=== PATIENT | female | born 1970 | race Caucasian/White ===

== ENCOUNTER 2020-10-11 12:46 | Day surgery (SDC) | payer SELFPAY ==
[~2020-10-11] VITALS: Ht 154.9 cm; Wt 69.5 kg
[2020-10-11 13:39] LABS: BILIRUBIN,URINE NEGATIVE (NEGATIVE); CLARITY,URINE CLEAR; COLOR,URINE YELLOW; GLUCOSE, URINE (UA) 2+ (NEGATIVE); KETONES,URINE 3+ (NEGATIVE); LEUKOCYTE ESTERASE ,URINE NEGATIVE (NEGATIVE); NITRITE,URINE NEGATIVE (NEGATIVE); PROTEIN,URINE NEGATIVE (NEGATIVE)
[2020-10-11] MEDS ORDERED: NS IV 1000 ML 1,000 ML IV SCH ×2 (13:45→14:15)
[2020-10-11] MEDS ORDERED: IOHEXOL 350 MG/ML 100 ML (OMNIPAQUE 350) VIAL IV ONE (13:45)
[2020-10-11] MEDS ORDERED: CATHETER FLUSH 10 ML SYR IV PRN (13:45)
[2020-10-11] MEDS ORDERED: NS 100 ML (IVPB) BAG IV ONE (13:45)
[2020-10-11] MEDS ORDERED: HOLD METFORMIN - RECEIVED CONTRAST 20 ML VIAL IV SCH (13:45)
[2020-10-11 13:46] LABS: BASOPHILS % (AUTO) 1 % (0-10); EOSINOPHILS # (AUTO) 0.1 10^3/uL (0.0-0.3); EOSINOPHILS % (AUTO) 1 % (0-10); HEMATOCRIT 39 % (35-52); HEMOGLOBIN 12.7 g/dL (11.5-16.0); LYMPHOCYTES # (AUTO) 1.8 10^3/uL (1.0-4.0); LYMPHOCYTES % (AUTO) 29 % (12-44); MEAN CORPUSCULAR HEMOGLOBIN 26 pg (25-34); MEAN CORPUSCULAR HGB CONC 33 g/dL (32-36); MEAN CORPUSCULAR VOLUME 81 fL (80-99); MEAN PLATELET VOLUME 10.4 fL (9.0-12.2); MONOCYTES # (AUTO) 0.4 10^3/uL (0.0-1.0); MONOCYTES % (AUTO) 7 % (0-12); NEUTROPHILS % (AUTO) 63 % (42-75); PLATELET COUNT 378 10^3/uL (130-400); WHITE BLOOD COUNT 6.3 10^3/uL (4.3-11.0)
--- NOTE | 2020-10-11 13:47 | ED General ---
General Chief Complaint: Glucose Problems Stated Complaint: HIGH BLOOD SUGAR Source of Information: Patient Exam Limitations: No Limitations History of Present Illness Date Seen by Provider: Oct 11, 2020 Time Seen by Provider: 13:44 Initial Comments To ER with reports of hyperglycemia and left lower quadrant abdominal pain. She presented to [facility] this morning for the symptoms. She was found to have 2+ ketones and glucose in her urine. Her hemoglobin A1c was 14. She is not known to be diabetic. Her left-sided abdominal pain has been present since she had Covid in February. She denies any nausea vomiting or bowel changes. She denies any dysuria. Timing/Duration: Other Severity: Moderate Associated Systoms: Denies Symptoms Allergies and Home Medications Allergies Coded Allergies: No Known Drug Allergies (Unverified , 10/11/20) Home Medications Metformin HCl 500 Mg Tablet, 500 MG PO BID Prescribed by: ZION PATINO on 10/11/201652 Naproxen 500 Mg Tablet, 500 MG PO BID PRN for PAIN-MODERATE (5-7) Prescribed by: ZION PATINO on 10/11/201652 Patient Home Medication List Home Medication List Reviewed: Yes Review of Systems Review of Systems Constitutional: see HPI EENTM: see HPI Respiratory: no symptoms reported Cardiovascular: no symptoms reported Gastrointestinal: abdominal pain Genitourinary: no symptoms reported Musculoskeletal: no symptoms reported Skin: no symptoms reported Psychiatric/Neurological: No Symptoms Reported Hematologic/Lymphatic: No Symptoms Reported Immunological/Allergic: no symptoms reported Physical Exam Vital Signs Vital Signs - First Documented 10/11/20 12:55 Temp 36.4 Pulse 83 Resp 18 B/P (MAP) 156/77 (103) Pulse Ox 100 O2 Delivery Room Air Capillary Refill : Height, Weight, BMI Height: '" Weight: lbs. oz. kg; BMI Method: General Appearance: No Apparent Distress, WD/WN Eyes: Bilateral Eye Normal Inspection, Bilateral Eye PERRL, Bilateral Eye EOMI Neck: Full Range of Motion, Normal Inspection Respiratory: Normal Breath Sounds, No Accessory Muscle Use, No Respiratory Distress Cardiovascular: Regular Rate, Rhythm, Normal Peripheral Pulses Gastrointestinal: Normal Bowel Sounds, Non Tender, Soft Extremity: Normal Capillary Refill, Normal Inspection Neurologic/Psychiatric: Alert, Oriented x3 Skin: Normal Color, Warm/Dry Progress/Results/Core Measures Suspected Sepsis SIRS Temperature: Pulse: Respiratory Rate: Laboratory Tests 10/11/20 13:38: White Blood Count 6.3 Blood Pressure / Mean: Laboratory Tests 10/11/20 13:38: Creatinine 0.62, Platelet Count 378, Total Bilirubin 0.6 Results/Orders Lab Results Laboratory Tests Test 10/11/20 13:32 10/11/20 13:38 Range/Units Urine Color YELLOW Urine Clarity CLEAR Urine pH 6.0 5-9 Urine Specific [place] 1.025 H 1.016-1.022 Urine Protein NEGATIVE NEGATIVE Urine Glucose (UA) 2+ H NEGATIVE Urine Ketones 3+ H NEGATIVE Urine Nitrite NEGATIVE NEGATIVE Urine Bilirubin NEGATIVE NEGATIVE Urine Urobilinogen 0.2 < = 1.0 MG/DL Urine Leukocyte Esterase NEGATIVE NEGATIVE Urine RBC (Auto) NEGATIVE NEGATIVE Urine RBC NONE /HPF Urine WBC 2-5 /HPF Urine Squamous Epithelial Cells 10-25 H /HPF Urine Crystals NONE /LPF Urine Bacteria TRACE /HPF Urine Casts NONE /LPF Urine Mucus NEGATIVE /LPF Urine Culture Indicated NO White Blood Count 6.3 4.3-11.0 10^3/uL Red Blood Count 4.86 3.80-5.11 10^6/uL Hemoglobin 12.7 11.5-16.0 g/dL Hematocrit 39 35-52 % Mean Corpuscular Volume 81 80-99 fL Mean Corpuscular Hemoglobin 26 25-34 pg Mean Corpuscular Hemoglobin Concent 33 32-36 g/dL Red Cell Distribution Width 13.4 10.0-14.5 % Platelet Count 378 130-400 10^3/uL Mean Platelet Volume 10.4 9.0-12.2 fL Immature Granulocyte % (Auto) 0 % Neutrophils (%) (Auto) 63 42-75 % Lymphocytes (%) (Auto) 29 12-44 % Monocytes (%) (Auto) 7 0-12 % Eosinophils (%) (Auto) 1 0-10 % Basophils (%) (Auto) 1 0-10 % Neutrophils # (Auto) 4.0 1.8-7.8 10^3/uL Lymphocytes # (Auto) 1.8 1.0-4.0 10^3/uL Monocytes # (Auto) 0.4 0.0-1.0 10^3/uL Eosinophils # (Auto) 0.1 0.0-0.3 10^3/uL Basophils # (Auto) 0.0 0.0-0.1 10^3/uL Immature Granulocyte # (Auto) 0.0 0.0-0.1 10^3/uL Sodium Level 138 135-145 MMOL/L Potassium Level 3.7 3.6-5.0 MMOL/L Chloride Level 101 98-107 MMOL/L Carbon Dioxide Level 26 21-32 MMOL/L Anion Gap 11 5-14 MMOL/L Blood Urea Nitrogen 11 7-18 MG/DL Creatinine 0.62 0.60-1.30 MG/DL Estimat Glomerular Filtration Rate > 60 BUN/Creatinine Ratio 18 Glucose Level 216 H 70-105 MG/DL Glucometer 211 H 70-110 MG/DL Calcium Level 8.9 8.5-10.1 MG/DL Corrected Calcium 8.7 8.5-10.1 MG/DL Total Bilirubin 0.6 0.1-1.0 MG/DL Aspartate Amino Transf (AST/SGOT) 16 5-34 U/L Alanine Aminotransferase (ALT/SGPT) 17 0-55 U/L Alkaline Phosphatase 83 40-136 U/L Total Protein 7.2 6.4-8.2 GM/DL Albumin 4.3 3.2-4.5 GM/DL Beta-Hydroxybutyrate (Chem panel) 1.19 H 0.00-0.27 MMOL/L Serum Test, Qualitative NEGATIVE NEGATIVE My Orders Orders - ZION PATINO APRN Cbc With Automated Diff (10/11/20 12:50) Comprehensive Metabolic Panel (10/11/20 12:50) Ua Culture If Indicated (10/11/20 12:50) Beta Hydroxybutyrate (10/11/20 12:50) Ct Abdomen/Pelvis W (10/11/20 13:33) Hcg,Qualitative Serum (10/11/20 13:33) Ns Iv 1000 Ml (Sodium Chloride 0.9%) (10/11/20 13:45) Ed Iv/Invasive Line Start (10/11/20 13:33) Iohexol Injection (Omnipaque 350 Mg/Ml 1 (10/11/20 13:45) Received Contrast (Hold Metformin- Contr (10/11/20 13:45) Sodium Chloride Flush (Catheter Flush Sy (10/11/20 13:45) Ns (Ivpb) (Sodium Chloride 0.9% Ivpb Bag (10/11/20 13:45) Ns Iv 1000 Ml (Sodium Chloride 0.9%) (10/11/20 14:15) Us Non Ob Pelvis Comp/Transvag (10/11/20 15:44) Ketorolac Injection (Toradol Injection) (10/11/20 17:15) Medications Given in ED Current Medications Medications Dose Ordered Sig/Lucila Route Start Time Stop Time Status Last Admin Dose Admin Iohexol 75 ml ONCE ONCE IV 10/11/20 13:45 10/11/20 13:46 DC 10/11/20 15:13 100 ML Ketorolac Tromethamine 15 mg ONCE ONCE IVP 10/11/20 17:15 10/11/20 17:16 DC 10/11/20 17:22 15 MG Sodium Chloride 10 ml NEEDED PRN IV 10/11/20 13:45 10/11/20 15:14 10 ML Sodium Chloride 100 ml ONCE ONCE IV 10/11/20 13:45 10/11/20 13:46 DC 10/11/20 15:13 80 ML Vital Signs/I&O 10/11/20 12:55 Temp 36.4 Pulse 83 Resp 18 B/P (MAP) 156/77 (103) Pulse Ox 100 O2 Delivery Room Air Capillary Refill : Progress Note : Progress Note NAME: EVANS SANDHU [facility] REC#: [id number] PT STATUS: REG ER : 1970 PHYSICIAN: ZION PATINO APRN ADMIT DATE: 10/11/20/ER Draft Date of Exam:10/11/20 US NON OB PELVIS COMP/TRANSVAG PROCEDURE: US Non-ob pelvis comp/trans. TECHNIQUE: Multiple realtime grayscale images were obtained of the pelvis in various projections endovaginally. Transabdominal imaging was also performed. INDICATION: Left adnexal mass seen on CT. COMPARISON: CT from earlier same day. FINDINGS: Uterus is anteverted and measures 13.4 cm in length x 6.9 cm in AP dimension x 10 cm transversely. Endometrial stripe is thickened and heterogeneous in appearance. It measures 18 mm in AP thickness. Subendometrial cystic lesion measures 1.6 x 1.2 x 1.3 cm. Included portions the cervix show a small 8 x 8 x 6 mm cyst. Left ovary is enlarged. It measures 6.4 x 5 x 5.4 cm. Complex hypoechoic area measures 4.3 x 2 x 4.1 cm and may be on the basis of hemorrhagic cyst. Performing agile test lead is unable to demonstrate blood flow to the left ovary. Right ovary measures 2.7 x 2.6 x 3.5 cm and contains a prominent follicle that measures 1.5 x 0.8 x 1.1 cm. No adnexal masses or free fluid are seen. IMPRESSION: 1. Non demonstrable blood flow to the left ovary concerning for torsion. 2. Complex cyst of the left ovary; possibly hemorrhagic. 3. Enlarged thickened heterogeneous appearance of the endometrial stripe. Underlying endometrial mass or polyp cannot be excluded. Additional follow-up is recommended. 4. Thick-walled subendometrial cystic lesion of the uterus. Findings can be seen with adenomyosis. Dictated on workstation # [id number] Dict: 10/11/201710 Trans: 10/11/201721 [id number] Interpreted by: EWELINA ADAMS MD Electronically signed by: Departure Communication (Admissions) She was offered medication for her pain but states that is not that bad and she does not need anything for it. She would like some pain medication for the lateral aspect of the right lower leg which she states has been bothering her for 1 week and she believes it is related to a tendon. Denies known injury. Impression Primary Impression: Diabetes mellitus Additional Impression: Ovarian cyst Disposition: 01 HOME, SELF-CARE Condition: Stable Departure-Patient Inst. Decision time for Depature: 16:51 Referrals: [facility] (PCP/Family) Primary Care Physician JUAN JOHANSEN DENNIS G MD Patient Instructions: Ovarian Cyst (DC) Add. Discharge Instructions: 1. Call Dr. Johansen or Dr. MENDEZ tomorrow to make an appointment to be seen. Return here for concerns. Medication as directed. All discharge instructions reviewed with patient and/or family. Voiced understanding. Scripts Naproxen (Naprosyn) 500 Mg Tablet 500 MG PO BID PRN for PAIN-MODERATE (5-7), #30 TAB 0 Refills Prov: ZION PATINO [employer] SALESPERSON 10/11/20 Metformin HCl (Metformin HCl) 500 Mg Tablet 500 MG PO BID, #60 TAB Prov: ZION PATINO [employer] SALESPERSON 10/11/20 ZION PATINO APRN Oct 11, 2020 13:47
[2020-10-11 13:53] LABS: BACTERIA,URINE TRACE /HPF
[2020-10-11 13:57] LABS: ALBUMIN 4.3 GM/DL (3.2-4.5); CHLORIDE 101 MMOL/L (98-107); POTASSIUM 3.7 MMOL/L (3.6-5.0); SODIUM 138 MMOL/L (135-145)
[2020-10-11 13:59] LABS: CALCIUM 8.9 MG/DL (8.5-10.1)
[2020-10-11 14:00] LABS: GLUCOSE 216 MG/DL (70-105); TOTAL PROTEIN 7.2 GM/DL (6.4-8.2)
[2020-10-11 14:01] LABS: BILIRUBIN,TOTAL 0.6 MG/DL (0.1-1.0); CARBON DIOXIDE 26 MMOL/L (21-32)
[2020-10-11 14:03] LABS: ALKALINE PHOSPHATASE 83 U/L (40-136); CREATININE SERUM 0.62 MG/DL (0.60-1.30); GFR ESTIMATED > 60
[2020-10-11 14:04] LABS: BUN/CREATININE RATIO 18
[2020-10-11 14:06] LABS: ALANINE AMINOTRANSFERASE 17 U/L (0-55)
--- NOTE | 2020-10-11 15:36 | Diagnostic Imaging Report ---
PROCEDURE: CT abdomen and pelvis with contrast. TECHNIQUE: Multiple contiguous axial images were obtained through the abdomen and pelvis after administration of intravenous contrast. Auto Exposure Controls were utilized during the CT exam to meet ALARA standards for radiation dose reduction. All CT scans use one or more of the following dose optimizing techniques: automated exposure control, MA and/or KvP adjustment based on patient size and exam type or iterative reconstruction. INDICATION: Left lower quadrant abdominal pain, right lower extremity pain. COMPARISON: No relevant comparison. FINDINGS: There is no diverticulitis. There is no hydroureteronephrosis. The liver, gallbladder, spleen, adrenals, and pancreas appeared normal. The aortoiliac and mesenteric vessels are patent and nonaneurysmal. No arterial or venous thrombus found. The uterus is prominent and somewhat heterogeneous which may reflect underlying fibroids. The right ovary and a follicular cyst appeared unremarkable. There is a left adnexal mass effect soft tissue in density measuring 4.9 x 3.7 cm. It is unclear if this is a prominent ovary or if there is an exophytic mass arising off the uterus such as fibroid. Given these findings, pelvic ultrasound is recommended. The appendix is air containing and normal. There is no bowel obstruction. There is no ascites, abscess, hematoma, or acute fluid collection. No pneumatosis or free air. The urinary bladder is normal. No abdominopelvic lymphadenopathy. The bony structures and lung bases were nonacute. IMPRESSION: 1. Heterogeneous prominent uterus with left adnexal mass effect which may be ovarian or exophytic fibroid. Pelvic ultrasound is recommended. 2. Nonfocal unobstructed urinary tracts with normal appendix and no diverticulitis. Dictated by: Dictated on workstation # [id number]
[2020-10-11] MEDS ORDERED: METF-397 PO (16:53)
[2020-10-11] MEDS ORDERED: NAPR-1071 PO (16:53)
[2020-10-11] MEDS ORDERED: KETOROLAC 30 MG/ML VIAL IVP ONE (17:15)
--- NOTE | 2020-10-11 17:22 | Diagnostic Imaging Report ---
PROCEDURE: US Non-ob pelvis comp/trans. TECHNIQUE: Multiple realtime grayscale images were obtained of the pelvis in various projections endovaginally. Transabdominal imaging was also performed. INDICATION: Left adnexal mass seen on CT. COMPARISON: CT from earlier same day. FINDINGS: Uterus is anteverted and measures 13.4 cm in length x 6.9 cm in AP dimension x 10 cm transversely. Endometrial stripe is thickened and heterogeneous in appearance. It measures 18 mm in AP thickness. Subendometrial cystic lesion measures 1.6 x 1.2 x 1.3 cm. Included portions the cervix show a small 8 x 8 x 6 mm cyst. Left ovary is enlarged. It measures 6.4 x 5 x 5.4 cm. Complex hypoechoic area measures 4.3 x 2 x 4.1 cm and may be on the basis of hemorrhagic cyst. Performing program rep is unable to demonstrate blood flow to the left ovary. Right ovary measures 2.7 x 2.6 x 3.5 cm and contains a prominent follicle that measures 1.5 x 0.8 x 1.1 cm. No adnexal masses or free fluid are seen. IMPRESSION: 1. Non demonstrable blood flow to the left ovary concerning for torsion. 2. Complex cyst of the left ovary; possibly hemorrhagic. 3. Enlarged thickened heterogeneous appearance of the endometrial stripe. Underlying endometrial mass or polyp cannot be excluded. Additional follow-up is recommended. 4. Thick-walled subendometrial cystic lesion of the uterus. Findings can be seen with adenomyosis. Dictated by: Dictated on workstation # [id number]
--- NOTE | 2020-10-11 18:53 | History & Physical-Surgical ---
HPO-Surgical History of Present Illness Chief Complaint: PT ARRIVED BY PRIVATE VEHICLE WITH CHIEF COMPLAINT OF HYPERGLYCEMIA. PT CAME FROM [facility], BECAUSE SHE HAD HIGH BLOOD SUGAR AND HAD SUGAR IN HER URINE. PT STATED ABDOMINAL PAIN ON THE LEFT LOWER SIDE STARTED IN FEBRUARY AFTER SHE HAD COVID. PT STATED THAT HER RIGHT LEG PAIN FROM ANKLE TO KNEE STARTED ABOUT 1 WEEK AGO AND SHE THINKS IT IS HER TENDON. IT DOES NOT HURT WHEN WALKING BUT ONLY WHEN LYING DOWN. PT STATED THAT THE VARICOSE VEINS ARE ALWAYS THAT LARGE. PT STATED SHE JUST FOUND OUT TODAY THAT SHE HAS HIGH BLOOD SUGAR AND HAS NOT HISTORY. PT DENIES NAUSEA, VOMITING, DIARRHEA OR ISSUES WHEN URINATING. THE ONLY HX PT STATED IS REFLUX. PT WAS ALERT, ORIENTED X 4 AND AMBUALTORY. PT'S VITALS WERE TAKEN ON ARRIVAL. BLOOD SUGAR WAS TAKEN AND WAS 211 AND IV WAS STARTED (22 GAUGE) IN LEFT AC. Diagnosis/Surgical Indication: Absent blood flow to ovary, with 5x6 cm cyst Procedure: Diagnostic Laparoscopy Date of Surgery: Oct 12, 2020 Allergies and Home Medications Allergies Coded Allergies: No Known Drug Allergies (Unverified , 10/11/20) Home Medications Metformin HCl 500 Mg Tablet, 500 MG PO BID Prescribed by: ZION PATINO on 10/11/201652 Naproxen 500 Mg Tablet, 500 MG PO BID PRN for PAIN-MODERATE (5-7) Prescribed by: ZION PATINO on 10/11/201652 Patient Home Medication List Home Medication List Reviewed: Yes Past Fkoqxsd-[id number]-Idzxmb Hx Patient Social History Alcohol Use: Denies Use Recreational Drug Use: No Smoking Status: Never a Smoker 2nd Hand Smoke Exposure: No Recent Foreign Travel: No Contact w/other who traveled: No Recent Hopitalizations: No Recent Infectious Disease Expo: No Seasonal Allergies Seasonal Allergies: No Surgeries No Respiratory No Cardiovascular No Neurological No Genitourinary No Gastrointestinal No Musculoskeletal No Endocrine History of Endocrine Disorders: No HEENT History of HEENT Disorders: No Cancer No Psychosocial History of Psychiatric Problem: No Integumentary History of Skin or Integumenta: No Blood Transfusions History of Blood Disorders: No Exam Vital Signs Vital Signs 10/11/20 12:55 Temp 36.4 Pulse 83 Resp 18 B/P (MAP) 156/77 (103) Pulse Ox 100 O2 Delivery Room Air Capillary Refill : Less Than 3 Seconds Labs Laboratory Tests Test 10/11/20 13:32 10/11/20 13:38 Range/Units Urine Color YELLOW Urine Clarity CLEAR Urine pH 6.0 5-9 Urine Specific [place] 1.025 H 1.016-1.022 Urine Protein NEGATIVE NEGATIVE Urine Glucose (UA) 2+ H NEGATIVE Urine Ketones 3+ H NEGATIVE Urine Nitrite NEGATIVE NEGATIVE Urine Bilirubin NEGATIVE NEGATIVE Urine Urobilinogen 0.2 < = 1.0 MG/DL Urine Leukocyte Esterase NEGATIVE NEGATIVE Urine RBC (Auto) NEGATIVE NEGATIVE Urine RBC NONE /HPF Urine WBC 2-5 /HPF Urine Squamous Epithelial Cells 10-25 H /HPF Urine Crystals NONE /LPF Urine Bacteria TRACE /HPF Urine Casts NONE /LPF Urine Mucus NEGATIVE /LPF Urine Culture Indicated NO White Blood Count 6.3 4.3-11.0 10^3/uL Red Blood Count 4.86 3.80-5.11 10^6/uL Hemoglobin 12.7 11.5-16.0 g/dL Hematocrit 39 35-52 % Mean Corpuscular Volume 81 80-99 fL Mean Corpuscular Hemoglobin 26 25-34 pg Mean Corpuscular Hemoglobin Concent 33 32-36 g/dL Red Cell Distribution Width 13.4 10.0-14.5 % Platelet Count 378 130-400 10^3/uL Mean Platelet Volume 10.4 9.0-12.2 fL Immature Granulocyte % (Auto) 0 % Neutrophils (%) (Auto) 63 42-75 % Lymphocytes (%) (Auto) 29 12-44 % Monocytes (%) (Auto) 7 0-12 % Eosinophils (%) (Auto) 1 0-10 % Basophils (%) (Auto) 1 0-10 % Neutrophils # (Auto) 4.0 1.8-7.8 10^3/uL Lymphocytes # (Auto) 1.8 1.0-4.0 10^3/uL Monocytes # (Auto) 0.4 0.0-1.0 10^3/uL Eosinophils # (Auto) 0.1 0.0-0.3 10^3/uL Basophils # (Auto) 0.0 0.0-0.1 10^3/uL Immature Granulocyte # (Auto) 0.0 0.0-0.1 10^3/uL Sodium Level 138 135-145 MMOL/L Potassium Level 3.7 3.6-5.0 MMOL/L Chloride Level 101 98-107 MMOL/L Carbon Dioxide Level 26 21-32 MMOL/L Anion Gap 11 5-14 MMOL/L Blood Urea Nitrogen 11 7-18 MG/DL Creatinine 0.62 0.60-1.30 MG/DL Estimat Glomerular Filtration Rate > 60 BUN/Creatinine Ratio 18 Glucose Level 216 H 70-105 MG/DL Glucometer 211 H 70-110 MG/DL Calcium Level 8.9 8.5-10.1 MG/DL Corrected Calcium 8.7 8.5-10.1 MG/DL Total Bilirubin 0.6 0.1-1.0 MG/DL Aspartate Amino Transf (AST/SGOT) 16 5-34 U/L Alanine Aminotransferase (ALT/SGPT) 17 0-55 U/L Alkaline Phosphatase 83 40-136 U/L Total Protein 7.2 6.4-8.2 GM/DL Albumin 4.3 3.2-4.5 GM/DL Beta-Hydroxybutyrate (Chem panel) 1.19 H 0.00-0.27 MMOL/L Serum Test, Qualitative NEGATIVE NEGATIVE General Appearance: Alert, Oriented X3, Cooperative, Mild Distress HEENT: Atraumatic Respiratory: Clear to Auscultation Cardiovascular: Regular Rate Abdominal: Normal Bowel Sounds, Soft, Other (suprapubic abdominal tenderness, no involuntary guarding) Extremities: No Cyanosis Skin: No Rashes Neuro: Normal Gait Psych/Mental Status: Mental Status NL Assessment/Plan Assessment and Plan Plan: Patient has just eaten and her pain is undercontrol, therefore for risk of aspiration, plan to proceed first thing in the morning. Risk of procedure reviewed with patient all questions answered. Admission Diagnosis Admission Status: Observation Reason for Inpatient Admission: Ovarian torsion 6cm ovarian cyst JUAN BRAUN DO Oct 11, 2020 18:53
[2020-10-11] MEDS ORDERED: LORazepam INJ 2 MG/ML (ATIVAN) VIAL IVP ONE (19:00)
[2020-10-11] MEDS ORDERED: LACTATED RINGERS 1,000 ML IV ONE (20:24)
[2020-10-11 20:30] VITALS: BP 134/69
--- NOTE | 2020-10-11 20:30 | NUR ---
EVANS SANDHU presented to unit via ambulatory from ED, with c/o L OVARIAN TORSION. EVANS SANDHU weighed, gowned, voided, and to bed. EFHM and TOCO applied, VS taken. EVANS SANDHU oriented to bed controls, call light, TV, heat, and A/C controls.
[2020-10-11] MEDS ORDERED: fentaNYL INJECTION 100 MCG/2 ML AMP ONE (20:51)
[2020-10-11] MEDS ORDERED: fentaNYL INJECTION 100 MCG/2 ML AMP IVP PRN (21:00)
[2020-10-11] MEDS: LACTATED RINGERS 1,000 ML IV SCH (21:03)
--- NOTE | 2020-10-11 21:15 | NUR ---
Pt orientated to room. Assessment completed. c/o pain in the lower left quadrant. Fentanyl given ivp. Plan of care discussed with pt. Pt denies any further needs at this time. Will continue to monitor.
--- NOTE | 2020-10-11 21:20 | NUR ---
notified of pt's arrival to unit. Orders reviewed. New orders received.
[2020-10-11] MEDS ORDERED: KETOROLAC 30 MG/ML VIAL IVP PRN (23:00)
[2020-10-11] MEDS ORDERED: ONDANSETRON 4 MG/2 ML (SDV) Z0FRAN IVP PRN (23:00)
[2020-10-12] VITALS (11 sets, daily range): BP systolic 98–153; BP diastolic 53–78
[2020-10-12] MEDS: LACTATED RINGERS 1,000 ML IV SCH ×2 (03:58→10:33)
[2020-10-12 06:15] LABS: HEMOGLOBIN 10.7 g/dL (11.5-16.0); MEAN PLATELET VOLUME 11.1 fL (9.0-12.2); WHITE BLOOD COUNT 3.9 10^3/uL (4.3-11.0)
[2020-10-12 06:29] LABS: ALBUMIN 3.5 GM/DL (3.2-4.5)
[2020-10-12 06:30] LABS: CHLORIDE 105 MMOL/L (98-107); POTASSIUM 3.6 MMOL/L (3.6-5.0); SODIUM 134 MMOL/L (135-145)
[2020-10-12 06:31] LABS: CALCIUM 7.8 MG/DL (8.5-10.1)
[2020-10-12 06:32] LABS: GLUCOSE 229 MG/DL (70-105); TOTAL PROTEIN 5.8 GM/DL (6.4-8.2)
[2020-10-12 06:33] LABS: CARBON DIOXIDE 22 MMOL/L (21-32)
[2020-10-12 06:34] LABS: BILIRUBIN,TOTAL 0.8 MG/DL (0.1-1.0)
[2020-10-12 06:35] LABS: ALKALINE PHOSPHATASE 67 U/L (40-136)
[2020-10-12 06:36] LABS: CREATININE SERUM 0.54 MG/DL (0.60-1.30); GFR ESTIMATED > 60
[2020-10-12 06:37] LABS: BUN/CREATININE RATIO 15
[2020-10-12 06:39] LABS: ALANINE AMINOTRANSFERASE 12 U/L (0-55)
[2020-10-12] MEDS ORDERED: BUPIVACAINE 0.25% 30 ML (SENSORCAINE) VIAL ONE (06:40)
--- NOTE | 2020-10-12 06:40 | NUR ---
Anesthesia provider up to discuss Anesthesia consent with patient. RN at bedside. Procedure consent discussed with pt, using anesthesia provider as traffic controller cable. All questions answered. Pt agreeable to procedure.
[2020-10-12] MEDS ORDERED: MIDAZOLAM 2 MG/2 ML (VERSED) VIAL ONE (06:50)
[2020-10-12] MEDS ORDERED: fentaNYL INJECTION 100 MCG/2 ML AMP ONE (06:51)
[2020-10-12] MEDS ORDERED: ONDANSETRON 4 MG/2 ML (SDV) Z0FRAN ONE (06:54)
[2020-10-12] MEDS ORDERED: proPOfol 200 MG/20 ML (DIPRIVAN) VIAL IV ONE ×2 (06:54→08:10)
[2020-10-12] MEDS ORDERED: SEVOFLURANE (ULTANE) 15 ML INHAL SOLN ONE ×3 (06:54→08:48)
[2020-10-12] MEDS ORDERED: LIDOCAINE PF 2% 5 ML (XYLOCAINE) VIAL ONE (06:54)
[2020-10-12] MEDS ORDERED: ROCURONIUM 10 MG/ML 5 ML SYRINGE IV ONE ×2 (06:54→08:01)
--- NOTE | 2020-10-12 07:04 | NUR ---
Surgery up to receive patient. Report given. pt taken to or via bed.
[2020-10-12] MEDS ORDERED: HYDR-4226 PO (07:24)
[2020-10-12] MEDS ORDERED: IBUP-1773 PO (07:24)
--- NOTE | 2020-10-12 07:26 | Discharge Inst-Women's Service ---
Discharge Inst-Women's Serv Depart Medication/Instructions New, Converted or Re-Newed RX: RX on Chart Final Diagnosis Ovarian cyst Problems Reviewed?: Yes Consults/Follow Up Additional Follow Up: Yes Orders/Referrals Dr. Johansen in 7-10 days Activity Activity: Activity as Tolerated Driving Instructions: No Driving for 1 Week NO SMOKING: NO SMOKING Nothing Inside Vagina: No Douching, No [place], No Tampons Diet Discharge Diet: No Restrictions Symptoms to Report to : Bleeding Excessive, Pain Increased, Fever Over 101 Degrees F, Vaginal Bleeding Increase, Questions/Concerns For Any Problems or Questions: Contact Your Physician Skin/Wound Care Infection Signs and Symptoms: Increased Redness, Foul Odor of Wound, Increased Drainage, Skin Itchy or Has a Rash, Increased Swelling, Temperature Above 101 F Operative Area Clean and Dry: Keep Incision Clean/Dry Stitches/Siva/Dermabond: Dermabond, Care of Stitches Bathing Instructions: JUAN Krishna DO Oct 12, 2020 07:26
[2020-10-12] MEDS ORDERED: CHLORASEPTIC LOZENGE MM PRN (07:30)
[2020-10-12] MEDS ORDERED: ANTACID SUSP 30 ML UDC (MYLANTA) PO PRN (07:30)
[2020-10-12] MEDS ORDERED: HYDROcodone/APAP 5 MG/325 MG (LORTAB) TAB PO PRN (07:30)
[2020-10-12] MEDS ORDERED: SIMETHICONE 80 MG (MYLICON) CHEW PO PRN (07:30)
[2020-10-12] MEDS ORDERED: ONDANSETRON 4 MG/2 ML (SDV) Z0FRAN IV PRN (07:30)
[2020-10-12] MEDS ORDERED: KETOROLAC 30 MG/ML VIAL IV PRN (07:30)
[2020-10-12] MEDS ORDERED: DOCUSATE SODIUM 100 MG (COLACE) CAP PO PRN (07:30)
[2020-10-12] MEDS ORDERED: LACTATED RINGERS 1,000 ML IV SCH (07:30)
[2020-10-12] MEDS ORDERED: LACTATED RINGERS 1,000 ML IV PRN (08:15)
[2020-10-12] MEDS ORDERED: GLYCOPYRROLATE 0.2 MG/ML (ROBINUL) 2 ML VIAL ONE (08:29)
[2020-10-12] MEDS ORDERED: NEOSTIGMINE 3 MG/3 ML VIAL ONE (08:29)
[2020-10-12] MEDS ORDERED: ONDANSETRON 4 MG/2 ML (SDV) Z0FRAN IVP PRN (08:45)
[2020-10-12] MEDS ORDERED: morphine INJ 10 MG/ML 1ML (SYR OR VIAL) IVP ONE (08:45)
[2020-10-12] MEDS ORDERED: fentaNYL INJECTION 100 MCG/2 ML AMP IVP ONE (08:45)
[2020-10-12] MEDS ORDERED: MEPERIDINE (DEMEROL) INJ 50 MG/ML IVP ONE (08:45)
--- NOTE | 2020-10-12 09:40 | NUR ---
EVANS SANDHU presented to unit via BED from RECOVERY, accompanied by Jos MARIE, COURSE INSTRUCTOR AFTER HAVING SURGERY PER DR. BRAUN. VS OBTAINED. REPORT RECEIVED FROM Jos MARIE, RN AT BEDSIDE.
--- NOTE | 2020-10-12 09:46 | Anesthesia-General Post-Op ---
General Patient Condition Mental Status/LOC: Same as Preop Cardiovascular: Satisfactory Nausea/Vomiting: Absent Respiratory: Satisfactory Pain: Controlled Complications: Absent Post Op Complications Complications None Follow Up Care/Instructions Patient Instructions None needed. Anesthesia/Patient Condition Patient Condition Patient is doing well, no complaints, stable vital signs, no apparent adverse anesthesia problems. No complications reported per nursing. GERRY RIZVI CRNA Oct 12, 2020 09:46
--- NOTE | 2020-10-12 10:20 | NUR ---
+ VOID NOTED VIA BEDPAN.
--- NOTE | 2020-10-12 15:30 | NUR ---
DISCHARGE PAPERS PROVIDED AND REVIEWED WITH PT VIA LANGUAGE LINE, PT VERBALIZES UNDERSTANDING. QUESTIONS ANSWERED. PAPER SIGNED. RX'S X2 ALSO PROVIDED AT THIS TIME.
--- NOTE | 2020-10-12 16:00 | NUR ---
PT DISCHARGED FROM -302 TO PERSONAL AUTO VIA W/C IN STABLE CONDITION ACC BY THIS RN. BELONGINGS IN HAND.
--- NOTE | 2020-10-12 17:30 | OPERATIVE REPORT ---
DATE OF SERVICE: PREOPERATIVE DIAGNOSES: 1. A 50-year-old female with left ovarian adnexal enlargement. 2. Absent blood flow to the left ovary on ultrasound. POSTOPERATIVE DIAGNOSES: 1. A 50-year-old female with left ovarian adnexal enlargement. 2. Absent blood flow to the left ovary on ultrasound. 3. Confirmed left ovarian torsion. PROCEDURE: Laparoscopic left salpingo-oophorectomy with lysis of adhesions. SURGEON: Juan Braun DO ANESTHESIA: General endotracheal. ESTIMATED BLOOD LOSS: Minimal. URINE OUTPUT: 50 mL clear at the end of procedure. FLUIDS: 1600 mL of lactated Ringer's solution. FINDINGS: A grossly normal appearing external female genitalia, bulky and enlarged uterus, suspicious for multiple fibroids, both intramural and submucosal and subserosal left ovary with torsion and including the fallopian tube displaced in the ovary posteriorly behind the uterus into the posterior cul-de-sac. A large multicystic appearing left ovary as well. Right ovary unable to be visualized, but appears to be adhesed to the right pelvic sidewall behind some bowel adhesions. SPECIMEN SENT: Left ovary and tube. INDICATIONS FOR PROCEDURE: This 50-year-old female is a patient, who came into the Emergency Department for onset of left lower quadrant abdominal pain. She reports that about 3 months ago, it started slowly and had been rapidly getting worse until the point where he brought her to the Emergency Department. She was recently diagnosed with diabetes that she was concerned about her blood sugars maybe being out of control and this being a symptom as well. Upon evaluation in the Emergency Department, both CT scan and ultrasound confirmed that there was an adnexal mass approximately 4 x 5 cm. There was also concern for no blood flow to the left ovary. Due to this, I discussed with the patient proceeding with diagnostic laparoscopy and evaluation of this area, possible removal of the ovary depending on the cyst due to the patient's age. We discussed just removal of the ovary. However, she had just eaten and therefore I admitted her overnight due to the fact that she was clinically stable and her pain was not out of control. This morning, I reviewed with the patient in detail the procedure including risk of bleeding, infection, damage to surrounding structures including, but not limited to bowel, bladder, ureter, kidneys, possible need for reoperation, recovery timeframe, risk from anesthesia and even . Everything was discussed with the patient in detail, consent was obtained in the preoperative area, the patient was taken to the operating room. OPERATIVE REPORT IN DETAIL: Once in the operating room, general anesthesia was found to be adequate, placed in dorsal lithotomy position, prepped and draped in normal sterile fashion. A timeout was performed. A Watson catheter was placed using sterile technique. A weighted speculum inserted to the patient's vagina. Right angle retractor was used to visualize the cervix, which was grasped at 12 o'clock position using a long Allis clamp. I then gently sound the uterine cavity, depth was found to be approximately 9 to 10 cm. I selected a fabrooms uterine manipulator set to a depth of 8 cm deploying the balloon into the uterine cavity, which offers excellent manipulation on bimanual examination. I then removed all the other instruments from the patient's vagina, performed change of gloves. Turned my attention to the abdomen where infraumbilically I infiltrated this area using 0.25% Marcaine and make a 5 mm incision with a knife and directed Veress needle through the incision until intraperitoneal placement was confirmed using saline drop test. An opening pressure of 2 mmHg was noted, proceeded to maximum pressure of 15 mmHg, at which point I removed the Veress needle and introduced a 5 mm blunt laparoscopic trocar. Once this was in place, I am able to confirm intraperitoneal placement using the laparoscope. A brief scan of the mid and upper abdominal anatomy appears to be grossly normal. There is no evidence of damage upon my entry site. The patient placed in steep Trendelenburg and made visualize all my pelvic anatomy was defined in my findings above. I have to start by taking down some filmy adhesions of the posterior cul-de-sac. The uterus is very large and is hard to displace removed in anteversion fashion in order to visualize the posterior cul-de-sac. After everything was discussed with the uterus; however, it is adhesed to the posterior portion of the pelvis. I then had to take place two separate trocars. I placed a 12 mm trocar suprapubically and a 5 mm trocar in the left lower quadrant. Once both these trocars were in place, I am able to perform the following dissection. I started at the uteroovarian ligament, which I bipolar cauterized and transected using the LigaSure. I also transected proximal isthmic portion of the fallopian tube in a similar fashion, I then took this dissection down the mesosalpinx down to the lateral attachment point of the infundibulopelvic ligament. Once this was done, the entire specimen was removed through an Endopouch bag. The suprapubic trocar site. I then copiously irrigated the pelvis using normal saline. There was no active bleeding noted from any of my dissection planes. I extensively attempts to liberate the right ovary from the right ovarian fossa, which is adhesed however, due to significant adhesions. I do not proceed with this and there was no abnormality that was identified on imaging. Therefore, I deemed the procedure complete at that point. I have the patient taken out of steep Trendelenburg, I removed the 5 mm trocars and released. The [address] to release insufflation and to introduce 10 mL of 0.25% Marcaine into the peritoneal cavity for postoperative pain management. I then removed this trocar as well. I then closed the fascia of the large incision using 0 Vicryl suture in a [id number] fashion reapproximating the fascia. I then reapproximated the skin of all three incisions using 4-0 Monocryl running subcuticular. Dermabond was applied to incisions and Band-Aids were placed over the incisions as well. The patient tolerated the procedure well and was taken to recovery area in stable condition. Lap and sponge count Kronner correct at the end of the procedure. Instrument counts correct as well. Kronner uterine manipulator and Watson catheter was removed at the end of the procedure. Job ID: [id number] DocumentID: [id number] Dictated Date: 10/12/2020 10:49:04 Bogger Operator Date: 10/12/2020 17:29:03 Dictated By: JUAN BRAUN DO
[2020-10-13] MEDS ORDERED: IBUPROFEN 600 MG (MOTRIN) TAB PO SCH
--- NOTE | 2020-10-13 08:05 | Anesthesia-General Post-Op ---
General Patient Condition Mental Status/LOC: Same as Preop Cardiovascular: Satisfactory Nausea/Vomiting: Absent Respiratory: Satisfactory Pain: Controlled Complications: Absent Post Op Complications Complications None Follow Up Care/Instructions Patient Instructions None needed. Anesthesia/Patient Condition Patient Condition Patient is doing well, no complaints, stable vital signs, no apparent adverse anesthesia problems. No complications reported per nursing. VALERIA BECERRA CRNA Oct 13, 2020 08:05
== END 2020-10-12 16:00 | disposition home or self-care (01) ==
LOC: ER 12:48 → SDC 18:10 → LDRP 18:10 → UNDOADMIN 18:10 → LDRP 18:10 → UNDODISIN 10-12 16:00 → SDC 10-12 16:00
PROVIDERS: ATTEND Obstetrics & Gynecology
DX: N83.512 Torsion of left ovary and ovarian pedicle (principal); N80.2 Endometriosis of fallopian tube; N83.202 Unspecified ovarian cyst, left side; K21.9 Gastro-esophageal reflux disease without esophagitis; E11.9 Type 2 diabetes mellitus without complications; Z79.899 Other long term (current) drug therapy; Z79.84 Long term (current) use of oral hypoglycemic drugs; Z20.828 Contact with and (suspected) exposure to other viral communicable diseases
CPT/HCPCS: 58661; 74177; 76830; 76856; 80053 ×2; 81000; 82010; 82962; 84703; 85025; 85027; 88305; 96361; 96374; 99284; U0002; 36415; 87635

== ENCOUNTER 2020-10-31 13:22 | Emergency (ER) | payer SELFPAY ==
[~2020-10-31] VITALS: Ht 157.5 cm; Wt 68.2 kg
[~2020-10-31 13:22] MED LIST: HYDR-4226 PO; IBUP-1773 PO; METF-397 PO; NAPR-1071 PO
[2020-10-31 13:25] VITALS: BP 145/79
[2020-10-31] MEDS ORDERED: CEPH-507 PO (13:42)
--- NOTE | 2020-10-31 13:42 | ED Integumentary General ---
General Chief Complaint: Skin/Wound Problems Stated Complaint: INFECTION AT SITE OF SURGERY RLQ Source: patient Exam Limitations: no limitations History of Present Illness Date Seen by Provider: Oct 31, 2020 Time Seen by Provider: 13:39 Initial Comments To ER with concern of infection at the laparoscope incision left lower abdomen. A couple of weeks ago she was here for a left ovarian torsion which was treated operatively. She denies any fevers or chills but did have some puslike drainage from this wound yesterday. Timing/Duration: yesterday Severity: moderate Location: none Associated Symptoms: denies symptoms Allergies and Home Medications Allergies Coded Allergies: No Known Drug Allergies (Unverified , 10/11/20) Home Medications Hydrocodone/Acetaminophen 1 Each Tablet, 1-2 TAB PO Q6H Prescribed by: JUAN BRAUN on 10/12/20 0724 Ibuprofen 600 Mg Tablet, 600 MG PO Q6H Prescribed by: JUAN BRAUN on 10/12/20 0724 Metformin HCl 500 Mg Tablet, 500 MG PO BID Prescribed by: ZION PATINO on 10/11/20 5943 Patient Home Medication List Home Medication List Reviewed: Yes Review of Systems Review of Systems Constitutional: see HPI EENTM: see HPI Respiratory: no symptoms reported Cardiovascular: no symptoms reported Genitourinary: no symptoms reported Musculoskeletal: no symptoms reported Skin: see HPI Past Lesivri-Flummd-Qhxavh Hx Patient Social History 2nd Hand Smoke Exposure: No Recent Foreign Travel: No Contact w/Someone Who Travel: No Recent Hopitalizations: No Seasonal Allergies Seasonal Allergies: No Past Medical History Surgeries: No Respiratory: No Cardiac: No Neurological: No Genitourinary: No Gastrointestinal: No Musculoskeletal: No Endocrine: No HEENT: No Cancer: No Psychosocial: No Integumentary: No Blood Disorders: No Physical Exam Vital Signs Capillary Refill : General Appearance: WD/WN, no apparent distress Respiratory: no respiratory distress, no accessory muscle use Neurologic/Psychiatric: alert, normal mood/affect, oriented x 3 Skin: normal color, warm/dry Skin Problem Location: other (Left lower abdominal incision is very small and appears to be overall healing well without any erythema to suggest cellulitis. There is a small punctum in the center which I am able to get a bit of serous fluid out of. There is no palpable induration beneath it. ) Departure Impression Primary Impression: Postoperative seroma Disposition: HOME, SELF-CARE Condition: Stable Departure-Patient Inst. Decision time for Depature: 13:41 Patient Instructions: Wound Care (DC) Scripts Cephalexin (Keflex) 500 Mg Capsule 500 MG PO TID, #21 CAP Prov: ZION PATINO APRN 10/31/20 ZION PATINO APRN Oct 31, 2020 13:42
== END 2020-10-31 13:47 | disposition home or self-care (01) ==
LOC: EDUNIT# 13:22 → ER 13:25
DX: K91.872 Postprocedural seroma of a digestive system organ or structure following a digestive system procedure (principal)
CPT/HCPCS: 99282

== ENCOUNTER → 2020-11-30 | Outpatient (CLI) | payer OTHER ==
[~2020-11-30] MED LIST changes: +CEPH-507 PO
--- NOTE | 2020-11-30 14:06 | Diagnostic Imaging Report ---
PROCEDURE: Pelvic comp/transvaginal sonogram. TECHNIQUE: Complete transabdominal and transvaginal pelvic ultrasound was performed. In addition, limited pelvic Doppler was performed. INDICATION: Left-sided pelvic pain. Patient had a recent left oophorectomy for torsion. FINDINGS: The uterus measures 12.5 x 7.3 x 8.6 cm. The endometrium is thickened and heterogeneous measuring up to 21 mm. There is fluid echogenicity adjacent to the endometrial canal measuring approximately 2.0 x 1.3 x 1.8 cm. This compares with approximately 1.6 x 1.2 cm on the prior exam. The right ovary measures 3.9 x 3.2 x 2.5 cm and contains a 19 mm x 15 mm cyst. The left ovary is surgically absent. The right ovary does show normal blood flow. There is no free fluid. IMPRESSION: 1. There has been some increase in size of the subendometrial cystic mass when compared with the exam from 10/11/2020. 2. Status post left oophorectomy. 3. There is a 19 mm right ovarian cyst. Dictated by: Dictated on workstation # [id number]
== END ==
LOC: RAD 12:00
PROVIDERS: ATTEND Nurse Practitioner Women's Health
DX: N83.201 Unspecified ovarian cyst, right side (principal); N85.8 Other specified noninflammatory disorders of uterus; Z90.721 Acquired absence of ovaries, unilateral
CPT/HCPCS: 76830; 76856

== ENCOUNTER 2021-01-12 11:54 | Outpatient (CLI) | payer OTHER ==
[~2021-01-12] VITALS: Ht 152.4 cm; Wt 65.5 kg
[2021-01-12 12:38] VITALS: BP 128/76
[2021-01-12] MEDS ORDERED: LISI10TA25 PO (12:56)
[2021-01-12] MEDS ORDERED: METF-397 PO (12:56)
[2021-01-12] MEDS ORDERED: CANA300T PO (12:56)
[2021-01-12] MEDS ORDERED: ATOR20TA66 PO (12:56)
[2021-01-17] MEDS ORDERED: SMT80CT PO (07:41)
[2021-01-17] MEDS ORDERED: IBUP-844 PO (07:41)
[2021-01-17] MEDS ORDERED: DCS100C PO (07:41)
[2021-01-17] MEDS ORDERED: HYDR-34 PO (07:41)
== END 2021-01-12 13:01 | disposition home or self-care (01) ==
LOC: PREOP 11:54
PROVIDERS: ATTEND Obstetrics & Gynecology
DX: Z01.812 Encounter for preprocedural laboratory examination (principal); N85.8 Other specified noninflammatory disorders of uterus; N93.9 Abnormal uterine and vaginal bleeding, unspecified
CPT/HCPCS: 87081

== ENCOUNTER 2021-01-17 07:05 | Day surgery (SDC) | payer OTHER ==
[~2021-01-17] VITALS: Ht 154.9 cm; Wt 65.5 kg
[2021-01-17] VITALS (13 sets, daily range): BP systolic 106–123; BP diastolic 55–73
[~2021-01-17 07:05] MED LIST changes: +ATOR20TA66 PO; +CANA300T PO; +LISI10TA25 PO
[2021-01-17] MEDS ORDERED: LACTATED RINGERS 1,000 ML IV ONE (07:15)
[2021-01-17] MEDS ORDERED: metroNIDAZOLE 500MG/100ML IVPB 100 ML IV ONE (07:15)
[2021-01-17] MEDS ORDERED: ceFAZolin 2 GM IV Premixed 50 ML IV ONE (07:15)
[2021-01-17] MEDS ORDERED: LACTATED RINGERS 1,000 ML IV PRN (07:15)
--- NOTE | 2021-01-17 07:34 | Progress Note-Pre Operative ---
Pre-Operative Progress Note H&P Reviewed The H&P was reviewed, patient examined and no changes noted. Date Seen by Provider: Jan 17, 2021 Time Seen by Provider: 07:35 Date H&P Reviewed: Jan 17, 2021 Time H&P Reviewed: 07:35 Pre-Operative Diagnosis: Interuterine mass, AUB JUAN BRAUN DO Jan 17, 2021 07:34
--- NOTE | 2021-01-17 07:38 | Discharge Inst-Women's Service ---
Discharge Inst-Women's Serv Depart Medication/Instructions New, Converted or Re-Newed RX: RX on Chart Problems Reviewed?: Yes Consults/Follow Up Additional Follow Up: Yes Orders/Referrals Dr. Johansen in 7-10 days and in 8 weeks Activity Driving Instructions: No Driving for 1 Week NO SMOKING: NO SMOKING Nothing Inside Vagina: No Douching, No [place], No Tampons Diet Discharge Diet: No Restrictions Symptoms to Report to : Bleeding Excessive, Pain Increased, Fever Over 101 Degrees F, Vaginal Bleeding Increase, Questions/Concerns For Any Problems or Questions: Contact Your Physician Skin/Wound Care Infection Signs and Symptoms: Increased Redness, Foul Odor of Wound, Increased Drainage, Skin Itchy or Has a Rash, Increased Swelling, Temperature Above 101 F Operative Area Clean and Dry: Keep Incision Clean/Dry Stitches/Siva/Dermabond: Dermabond, Care of Stitches Bathing Instructions: JUAN Krishna DO Jan 17, 2021 07:38
[2021-01-17] MEDS ORDERED: HYDR-34 PO (07:41)
[2021-01-17] MEDS ORDERED: DCS100C PO (07:41)
[2021-01-17] MEDS ORDERED: SMT80CT PO (07:41)
[2021-01-17] MEDS ORDERED: IBUP-844 PO (07:41)
[2021-01-17] MEDS ORDERED: CHLORASEPTIC LOZENGE MM PRN (07:45)
[2021-01-17] MEDS ORDERED: LACTATED RINGERS 1,000 ML IV SCH (07:45)
[2021-01-17] MEDS ORDERED: ANTACID SUSP 30 ML UDC (MYLANTA) PO PRN (07:45)
[2021-01-17] MEDS ORDERED: SIMETHICONE 80 MG (MYLICON) CHEW PO PRN (07:45)
[2021-01-17] MEDS ORDERED: DOCUSATE SODIUM 100 MG (COLACE) CAP PO PRN (07:45)
[2021-01-17] MEDS ORDERED: ONDANSETRON 4 MG/2 ML (SDV) Z0FRAN IV PRN (07:45)
[2021-01-17] MEDS ORDERED: ZOLPIDEM 5 MG (AMBIEN) TAB PO PRN (07:45)
[2021-01-17 07:50] LABS: BASOPHILS % (AUTO) 1 % (0-10); EOSINOPHILS # (AUTO) 0.1 10^3/uL (0.0-0.3); EOSINOPHILS % (AUTO) 2 % (0-10); HEMATOCRIT 35 % (35-52); HEMOGLOBIN 11.1 g/dL (11.5-16.0); LYMPHOCYTES # (AUTO) 1.4 10^3/uL (1.0-4.0); LYMPHOCYTES % (AUTO) 30 % (12-44); MEAN CORPUSCULAR HEMOGLOBIN 25 pg (25-34); MEAN CORPUSCULAR HGB CONC 31 g/dL (32-36); MEAN CORPUSCULAR VOLUME 80 fL (80-99); MEAN PLATELET VOLUME 10.4 fL (9.0-12.2); MONOCYTES # (AUTO) 0.4 10^3/uL (0.0-1.0); MONOCYTES % (AUTO) 9 % (0-12); NEUTROPHILS # (AUTO) 2.7 10^3/uL (1.8-7.8); NEUTROPHILS % (AUTO) 58 % (42-75); PLATELET COUNT 336 10^3/uL (130-400); WHITE BLOOD COUNT 4.7 10^3/uL (4.3-11.0)
[2021-01-17] MEDS ORDERED: LIDOCAINE PF 2% 5 ML (XYLOCAINE) VIAL ONE (09:10)
[2021-01-17] MEDS ORDERED: proPOfol 200 MG/20 ML (DIPRIVAN) VIAL IV ONE (09:10)
[2021-01-17] MEDS ORDERED: fentaNYL INJ 100 MCG/2 ML AMP ONE (09:10)
[2021-01-17] MEDS ORDERED: SEVOFLURANE (ULTANE) 15 ML INHAL SOLN ONE ×3 (09:10→11:25)
[2021-01-17] MEDS ORDERED: NEOSTIGMINE 3 MG/3 ML VIAL ONE (09:10)
[2021-01-17] MEDS ORDERED: ROCURONIUM 10 MG/ML 5 ML SYRINGE IV ONE ×2 (09:10→10:44)
[2021-01-17] MEDS ORDERED: ONDANSETRON 4 MG/2 ML (SDV) Z0FRAN ONE (09:10)
[2021-01-17] MEDS ORDERED: GLYCOPYRROLATE 0.2 MG/ML (ROBINUL) 2 ML VIAL ONE (09:10)
[2021-01-17] MEDS ORDERED: MIDAZOLAM 2 MG/2 ML (VERSED) VIAL ONE (09:10)
[2021-01-17] MEDS ORDERED: BUPIVACAINE 0.25% 30 ML (SENSORCAINE) VIAL ONE (09:30)
[2021-01-17] MEDS ORDERED: INDIGO CARMINE 8 MG/ML 5 ML AMP ONE (10:48)
[2021-01-17] MEDS ORDERED: HYDROmorphone 2 MG/ML VIAL (DILAUDID) ONE (11:23)
[2021-01-17] MEDS ORDERED: KETOROLAC 30 MG/ML VIAL ONE (11:54)
[2021-01-17] MEDS ORDERED: ONDANSETRON 4 MG/2 ML (SDV) Z0FRAN IVP PRN (12:00)
[2021-01-17] MEDS ORDERED: HYDROmorphone 2 MG/ML VIAL (DILAUDID) IV ONE (12:00)
[2021-01-17] MEDS ORDERED: morphine INJ 10 MG/ML 1ML (SYR OR VIAL) IVP ONE (12:00)
[2021-01-17] MEDS: KETOROLAC 30 MG/ML VIAL IV PRN ×2 (12:05→18:28)
[2021-01-17] MEDS: HYDROcodone/APAP 7.5 MG/325 MG (LORTAB, LORCET PLUS) TABLET PO PRN ×2 (13:20→22:00)
--- NOTE | 2021-01-17 19:57 | OPERATIVE REPORT ---
DATE OF SERVICE: PREOPERATIVE DIAGNOSES: 1. A 50-year-old female with acute on chronic pelvic pain. 2. Right ovarian cyst that was complex. 3. Abnormal irregular bleeding. 4. Fibroid uterus. POSTOPERATIVE DIAGNOSES: 1. A 50-year-old female with acute on chronic pelvic pain. 2. Right ovarian cyst that was complex. 3. Abnormal irregular bleeding. 4. Fibroid uterus. 5. Dense adhesions of the right pelvic sidewall and the right adnexa and obliteration of the posterior cul-de-sac. PROCEDURE: Robotic-assisted total laparoscopic hysterectomy with right salpingo-oophorectomy, bilateral ureterolysis and extensive lysis of adhesions, taking greater than 30 minutes. Hysterectomy specimen was greater than 300 grams. SURGEON: Adrian Braun DO ANESTHESIA: General endotracheal. ESTIMATED BLOOD LOSS: Minimal. URINE OUTPUT: 250 mL of indigo carmine stained at the end of the procedure. FLUIDS: 1900 mL of lactated Ringer's solution. FINDINGS: A bulky enlarged hyperemic appearing uterus, absent left adnexa and fallopian tube. Right adnexa appears complex cystic structure that is adhesed to the lateral pelvic sidewall and the posterior cul-de-sac involving some of the sigmoid colon. SPECIMEN SENT: Uterus, right ovary and fallopian tube. INDICATIONS FOR PROCEDURE: This 50-year-old female, who is a patient who had followed up with me after she had been diagnosed earlier this year with a torsed ovary. The left ovary was removed at that procedure, she was doing well in the recovery timeframe; however, in the past month, she developed more pain, was having irregular bleeding and followup ultrasound revealed a complex cystic mass of the right ovary now as well as ongoing issues with bleeding. There was a fibroid noted on ultrasound as well. Due to the patient's ongoing concerns and pain, I discussed with the patient more definitive measures of addressing both of these problems. I discussed with the patient proceeding with hysterectomy. Risks of procedure were discussed with the patient in detail. After all of her questions were answered including recovery timeframe and followup, the patient was agreeable to proceed. Consent was obtained in the preoperative area and the patient was taken to the operating room. OPERATIVE REPORT IN DETAIL: Once in the operating room, anesthesia was found to be adequate, placed in dorsal lithotomy position, prepped and draped in normal sterile fashion. Timeout was performed. A Watson catheter was placed using sterile technique. A weighted speculum inserted to the patient's vagina. Right angle retractor was used to visualize the cervix, which an 0 Vicryl suture was placed anterior lip of the cervix and used as my retraction on the cervix. I then gently sound the uterine cavity, depth was found to be 8 cm. I selected an 8 cm Bebe uterine manipulator tip and a 4 cm colpotomy ring, I advanced the manipulator tip into the uterus deploying the balloon and advanced the colpotomy ring around the vaginal fornix. Manipulation is noted on bimanual at that point, I removed all the other instruments from the patient's vagina, performed change of gloves and took my attention to the abdomen where infraumbilically I infraumbilically I infiltrated this area using 0.25% Marcaine and make an 8 mm incision with a knife and directed Veress needle through the incision, intraperitoneal placement was confirmed using saline drop test. An opening pressure of 3 mm was noted with insufflation using CO2 gas and opening maximum pressure of 15 mmHg was reached. I removed the Veress needle and introduced an 8 mm blunt da Kylee laparoscopic trocar. Once this was in place, I am able to confirm intraperitoneal placement using the da Klyee laparoscope. There was no evidence of damage upon my entry site. Upper abdominal anatomy appears grossly normal. I placed two lateral trocars approximately 8 cm lateral to my infraumbilical trocar. Both of the skin are infiltrated using 0.25% Marcaine. Incisions were made with a knife and the trocars were placed under direct visualization of laparoscope. Once both of these trocars were in place, I bring in the da Kylee robot and docked in appropriate fashion, placing da Kylee vessel sealer in the left hand and monopolar willy in the right hand and the patient in steep Trendelenburg, I am able to visualize all my pelvic anatomy was defined in my findings above. The left pelvic sidewall does have some adhesions noted. I do open up the window in the posterior peritoneum and the retroperitoneum was dissected in order to identify the ureter, which was traced down all the way down to the pelvic sidewall ensuring that I stay clear of this during the dissection process of the procedure. On the right side, there were adhesions and obliteration of the posterior peritoneum. Therefore, I have to open the peritoneum and go retroperitoneal up at the pelvic brim where the infundibulopelvic ligament inserts into the pelvic sidewall. The peritoneum was opened here, and I am able to isolate the ureter. At this point, once I have isolated the ureter, I am able to clearly grasp the infundibulopelvic ligament and the uterine vessels, which I seal and transected using the vessel sealer. I have to take my dissection very carefully down the posterior pelvic wall, a lot of blunt dissection was used in the process of doing this to stay clear of the ureter and to avoid lateral thermal spread of damage to the ureter as well. This was taken all the way down to the point where I have gotten the adnexa and the surrounding peritoneum and adhesions freed up from the pelvic sidewall at the same time staying clear of the ureter. Once I have done this, I am able to grasp the round ligament anteriorly to this, which I sealed and transected using the vessel sealer. Now, there is a lateral opening of the peritoneum noted. I took my superior aspect of the lateral opening the peritoneum, which is a continuation of the broad ligament anteriorly around to the vaginal fornix reflection from the colpotomy ring. Once this was done anteriorly and posteriorly, I am able to skeletonize the uterine vessels laterally, which I sealed using the vessel sealer and transected using the vessel sealer. All the time, I am able to visualize the ureter and its peristalsis down the lateral pelvic sidewall, which I dissected out and been able to see during my takedown of these adhesions. Posteriorly, there are some adhesions of the sigmoid colon that had to be taken down in order to free up the posterior aspect of the vaginal fornix away from the vaginal cuff. Once these were taken down, I am able to continue my dissection around the posterior aspect of the uterus, the left side of the dissection is a slightly easier, although the ureter did deviate more cephalad due to the previous surgery. Therefore, it was taken out and dissected so that I could see its path down the left lateral sidewall as well. Once this was done, I am able to grasp the round ligament, which I bipolar cauterized and transected using the vessel sealer. I then take this down to the broad ligament reflection, which I am able to open up the anterior and posterior leaflets. The anterior lip was taken around to the anterior vaginal fornix and posterior leaflets was taken around to the posterior vaginal fornix. This allows me to skeletonize the uterine vessels laterally, which I bipolar cauterized and transected using the vessel sealer. I then created a colpotomy at 12 o'clock position using monopolar willy and took this circumferentially around the vaginal fornix amputating the cervix away from the vagina. The entire specimen was then removed through the vagina. I then closed the lateral vaginal apices of the vaginal cuff using 2-0 Vicryl suture in a [id number] fashion colposuspending the uterosacral ligaments. I then closed the remainder of the vaginal cuff using 2-0 V-Loc in a running fashion, after which no bleeding noted from any of my dissection planes. I then undocked the da Kylee robot and proceeded with the remainder of the case laparoscopically. I copiously irrigated the pelvis using normal saline. Once again, there was no active bleeding noted from any of my dissection planes. I placed Surgiflo hemostatic agent over all my planes of dissection and have the patient taken out of steep Trendelenburg where I removed the lateral trocars under direct visualization of laparoscope. The infraumbilical trocar was left in place to release insufflation and to introduce 10 mL of 0.25% Marcaine into the peritoneal cavity for postoperative pain management. I then removed this trocar as well. The skin reapproximated using 4-0 Monocryl in interrupted subcuticular stitches. Dermabond was applied to incision and Band-Aids were placed over the incisions as well. Lap and sponge counts were correct at the end of the procedure. Instrument counts correct as well. Watson catheter was left in place. Two grams of Ancef, 500 mg of Flagyl were given preoperatively for infection prophylaxis. Job ID: [id number] DocumentID: [id number] Dictated Date: 01/17/2021 12:04:26 Activities Director Scouting Date: 01/17/2021 19:56:53 Dictated By: ADRIAN BRAUN DO
[2021-01-18] MEDS: IBUPROFEN 600 MG (MOTRIN) TAB PO SCH ×2 (01:50→08:38)
[2021-01-18 01:55] VITALS: BP 107/58
[2021-01-18] MEDS: KETOROLAC 30 MG/ML VIAL IV PRN (01:55)
[2021-01-18 04:35] VITALS: BP 103/60
[2021-01-18 08:00] VITALS: BP 119/57
--- NOTE | 2021-01-18 08:15 | Anesthesia-General Post-Op ---
General Patient Condition Mental Status/LOC: Same as Preop Cardiovascular: Satisfactory Nausea/Vomiting: Absent Respiratory: Satisfactory Pain: Controlled Complications: Absent Post Op Complications Complications None Follow Up Care/Instructions Patient Instructions None needed. Anesthesia/Patient Condition Patient Condition Patient is doing well, no complaints, stable vital signs, no apparent adverse anesthesia problems. No complications reported per nursing. VALERIA BECERRA CRNA Jan 18, 2021 08:15
[2021-01-18 10:30] VITALS: BP 119/57
== END 2021-01-18 10:30 | disposition home or self-care (01) ==
LOC: SDC 07:05 → WS 12:07 → SDC 01-18 10:30
PROVIDERS: ATTEND Obstetrics & Gynecology
DX: D25.1 Intramural leiomyoma of uterus (principal); D25.2 Subserosal leiomyoma of uterus; N84.1 Polyp of cervix uteri; N84.0 Polyp of corpus uteri; G89.29 Other chronic pain; N93.9 Abnormal uterine and vaginal bleeding, unspecified; I10 Essential (primary) hypertension; E11.9 Type 2 diabetes mellitus without complications; Z79.84 Long term (current) use of oral hypoglycemic drugs; Z79.899 Other long term (current) drug therapy
CPT/HCPCS: 36415; 82962; 84703; 85025; 86850; 86900; 86901; 87081; 88307; 94664

== ENCOUNTER 2021-09-29 05:28 | Outpatient (RCR) | payer OTHER ==
[~2021-09-29] VITALS: Ht 152.4 cm; Wt 54.5 kg
[~2021-09-29 05:28] MED LIST changes: +DOCU-239 PO; +HYDR-34 PO; +IBUP-844 PO; +SMT80CT PO
== END 2021-09-30 12:08 | disposition home or self-care (01) ==
LOC: PREOP 05:28
PROVIDERS: ATTEND Surgery
DX: Z01.812 Encounter for preprocedural laboratory examination (principal); U07.1 COVID-19; R10.32 Left lower quadrant pain
CPT/HCPCS: 87635